=== PATIENT | male | born 1970 | race Asian ===

== ENCOUNTER 2019-12-09 10:06 | Emergency (ER) | payer BC, OTHER ==
[~2019-12-09] VITALS: Ht 165.1 cm; Wt 84.4 kg
[~2019-12-09 10:06] MED LIST: ALBUTEROL SULF8.5 GM INH; AZITHROMYCIN250 MG ORAL; BACTRIM-DS1 EA ORAL; BENADRYL ITCH28.3 G1 TP; CEPHALEXIN500 MG ORAL; IBUPROFEN600 MG ORAL; IBUPROFEN800 MG ORAL; NKM; ROBAXIN-750750 MG PO
--- NOTE | 2019-12-09 10:23 | Emergency Room Report ---
History of Present Illness General Chief Complaint: Lower Extremity Injury Source: Patient Present Illness HPI Disclaimer: Please note that this report is being documented using [email or web address] technology. This can lead to erroneous entry secondary to incorrect interpretation by the dictating instrument. HPI: 49-year-old male presents for evaluation of knee pain. 3 months ago he states he was practicing martial art and heard a pop in his knee. Was gradually improving since then until yesterday when he was working as a recreation center director. Noted worsening pain over the medial aspect of the right knee. Pain had been exacerbated by activity and improved by rest though now he was having pain at rest. He saw physical therapist and PMD this morning. X-ray was done which reportedly had no bony injury. He was recommended to return to physical therapy in 3 days for steroid joint injection. Patient states he did not want a wait that long came to the ER to see if he can have a steroid injection here. No other injuries reported. Ambulating without difficulty. PMH: Reviewed PSH: Reviewed Allergies: Reviewed Social Hx: Reviewed Allergies: Coded Allergies: No Known Allergies (Unverified , 02/07/14) COVID-19 Screening Contact w/high risk pt: No Experienced COVID-19 symptoms?: No COVID-19 Testing performed [employer] MACHINE: No Nursing Documentation-PMH Past Medical History: No Stated History Review of Systems All Other Systems: negative except mentioned in HPI Physical Exam Vital Signs Date Time Temp Pulse Resp B/P (MAP) Pulse Ox O2 Delivery O2 Flow Rate FiO2 12/09/19 10:09 97.7 64 18 153/111 (125) 96 Room Air General: Awake and alert, no acute distress HEENT: NC/AT. EOMI. Resp: Normal work of breathing Skin: Intact. No abrasions, laceration or rash over the exposed skin MSK: Normal tone and bulk. Moving all extremities. No obvious deformity. Ambulating without difficulty. Patella is in midline. There is tenderness to palpation over the proximal tibia and over the medial aspect of the knee. Varus and valgus testing shows stability. No laxity on anterior posterior testing. Neuro: Awake and alert. Mentating appropriately Medical Decision Making Diagnostic Impression: Primary Impression: Knee pain ER Course 49-year-old male presents for evaluation of right-sided knee pain. No new injury described. Patient had an x-ray earlier this morning which was reportedly negative. I suspect a meniscal or ligamentous injury. He is scheduled for cortisone injections at physical therapy this weekend but did not want a wait and wanted a shot now. Explained to the patient that he would have to wait to see his physical therapist and that elective joint injections were not done in the emergency department. He declined a knee brace, ice, NSAIDs. Did provide him one pain medication in the emergency department. Ambulated the emergency department. Will follow up with his physical therapist. Last Vital Signs Date Time Temp Pulse Resp B/P (MAP) Pulse Ox O2 Delivery O2 Flow Rate FiO2 12/09/19 10:09 97.7 64 18 153/111 (125) 96 Room Air Disposition: HOME, SELF-CARE Condition: Stable Patient Instructions: Knee Pain, Medial Collateral Knee Ligament Sprain With Phase I Rehab-Sports[facility] Additional Instructions: Please follow-up with your primary care doctor in the next 1 to 3 days to discuss this emergency department visit and for reevaluation. If you have any new or worsening symptoms please return to the emergency department for reev aluation. Please note that this report is being documented using [employer] technology. This can lead to erroneous entry secondary to incorrect interpretation by the dictating instrument. Abraham Harris MD Dec 09, 2019 10:23
[2019-12-09] MEDS ORDERED: HYDROcodone/Acetamin 7.5/325 tab ORAL ONE (10:30)
[2019-12-09 10:33] VITALS: BP 140/95
--- NOTE | 2019-12-09 10:33 | NUR ---
ER DISCHARGE NOTE: Patient is cleared to be discharged per ERMD, pt is aox4, on room air, with stable vital signs. pt was given dc and prescription instructions, pt was able to verbalize understanding, pt id band removed. pt is able to ambulate with steady gait. pt took all belongings.
== END 2019-12-09 10:33 | disposition home or self-care (01) ==
LOC: EMR 10:20
DX: M25.561 Pain in right knee (principal)
CPT/HCPCS: 99281